=== PATIENT | female | born 2000 | race Caucasian/White ===

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

== ENCOUNTER → 2022-07-20 | Outpatient (REF) | payer OTHER ==
[~2022-07-20] MED LIST changes: +ACET500P3 PO; +IBUP80TA PO
[2022-07-20 20:06] LABS: GC DNA AMPLIFICATION NEGATIVE (NEGATIVE)
== END ==
LOC: M LAB REF 17:22
PROVIDERS: ATTEND Physician Assistant
DX: Z00.00 Encounter for general adult medical examination without abnormal findings (principal)

== ENCOUNTER → 2022-08-26 | Outpatient (REF) | payer OTHER ==
[2022-08-26 19:17] LABS: GC DNA AMPLIFICATION NEGATIVE (NEGATIVE)
== END ==
LOC: M LAB REF 16:59
PROVIDERS: ATTEND Pediatrics
DX: A56.02 Chlamydial vulvovaginitis (principal)

== ENCOUNTER 2022-09-06 21:57 | Emergency (ER) | payer OTHER ==
[~2022-09-06] VITALS: Ht 170.2 cm; Wt 76.5 kg
[2022-09-06 21:58] VITALS: BP 127/68
[2022-09-08] MEDS ORDERED: PEPC1TAB5 PO (11:07)
== END 2022-09-07 02:14 | disposition left against medical advice (07) ==
LOC: M ED 21:57
DX: R10.9 Unspecified abdominal pain (principal); Z53.21 Procedure and treatment not carried out due to patient leaving prior to being seen by health care provider

== ENCOUNTER 2022-09-08 08:32 | Emergency (ER) | payer OTHER ==
[~2022-09-08] VITALS: Ht 170.2 cm; Wt 76.7 kg
[2022-09-08 09:30] LABS: BASO # 0.1 10^3/uL (0.0-0.2); BASO % 1.3 % (0.0-1.0); EOS # 0.1 10^3/uL (0.0-0.5); EOS % 2.4 % (0.0-3.0); HEMATOCRIT 38.3 % (36.0-47.0); HEMOGLOBIN 11.9 g/dl (12.0-15.5); LYMPH % 36.6 % (24.0-44.0); MEAN CORPUSCULAR HEMOGLOBIN 26.4 pg (27.0-33.0); MEAN CORPUSCULAR HGB CONC 31.1 g/dl (32.0-36.5); MEAN CORPUSCULAR VOLUME 84.9 fl (80.0-96.0); MONO # 0.3 10^3/uL (0.0-0.8); NEUTROPHILS # 2.9 10^3/uL (1.5-8.5); NEUTROPHILS % 53.5 % (36.0-66.0); PLATELET COUNT, AUTOMATED 106 10^3/uL (150-450); RED BLOOD COUNT 4.51 10^6/uL (4.00-5.40); WHITE BLOOD COUNT 5.5 10^3/uL (4.0-10.0)
[2022-09-08 09:48] LABS: HCG, SERUM QUALITATIVE NEGATIVE (NEGATIVE)
[2022-09-08 09:48] LABS: LIPASE 30 U/L (12-53)
[2022-09-08 09:50] LABS: ALBUMIN 3.9 G/DL (3.2-5.2); ALKALINE PHOSPHATASE 60 U/L (46-116); ALT/SGPT < 9 U/L (7.0-40); AST/SGOT 13 U/L (<34); BILIRUBIN,DIRECT 0.2 MG/DL (<0.4); BILIRUBIN,TOTAL 0.4 MG/DL (0.3-1.2); BLOOD UREA NITROGEN 6 MG/DL (9-23); CALCIUM LEVEL 8.8 MG/DL (8.5-10.1); CARBON DIOXIDE LEVEL 28 MMOL/L (20-31); CHLORIDE LEVEL 108 MMOL/L (98-107); CREATININE FOR GFR 0.71 MG/DL (0.55-1.30); GLUCOSE, FASTING 89 MG/DL (60-100); POTASSIUM SERUM 3.7 MMOL/L (3.5-5.1); SODIUM LEVEL 140 MMOL/L (136-145); TOTAL PROTEIN 6.7 G/DL (5.7-8.2)
[2022-09-08] MEDS ORDERED: GI COCKTAIL 50ML BTL(HYOSCYAMINE/MAALOX/LIDOCAINE VISCOUS)(1:3:1) PO ONE (10:10)
[2022-09-08] MEDS ORDERED: PEPC1TAB5 PO (11:07)
[2022-09-08 11:15] VITALS: BP 129/82
== END 2022-09-08 11:20 | disposition home or self-care (01) ==
LOC: M ED 08:32
DX: K29.00 Acute gastritis without bleeding (principal)

== ENCOUNTER 2023-05-27 23:06 | Emergency (ER) | payer OTHER ==
[~2023-05-27] VITALS: Ht 170.2 cm; Wt 75.3 kg
[~2023-05-27 23:06] MED LIST changes: +PEPC1TAB5 PO
[2023-05-28 01:11] LABS: URINE PREG TEST NEGATIVE (NEGATIVE)
[2023-05-28 02:19] LABS: CHLAMYDIA DNA AMPLIFICATION NEGATIVE (NEGATIVE); GC DNA AMPLIFICATION NEGATIVE (NEGATIVE)
[2023-05-28] MEDS ORDERED: AMOXICILLIN 500 MG CAP PO ONE (04:00)
[2023-05-28] MEDS ORDERED: METR0.7526 TOP (04:02)
[2023-05-28] MEDS ORDERED: AMOX500C PO (04:02)
[2023-05-28 04:14] VITALS: BP 125/73; TEMP 97.5; O2SAT 100
== END 2023-05-28 04:22 | disposition home or self-care (01) ==
LOC: M ED 23:06
DX: N76.0 Acute vaginitis (principal); J02.0 Streptococcal pharyngitis; N39.0 Urinary tract infection, site not specified; Z79.2 Long term (current) use of antibiotics; Z79.899 Other long term (current) drug therapy

== ENCOUNTER → 2023-08-08 | Outpatient (CLI) | payer OTHER ==
[~2023-08-08] MED LIST changes: +METR0.7526 TOP
[2023-08-08 14:58] LABS: GC DNA AMPLIFICATION NEGATIVE (NEGATIVE)
[2023-08-08 16:20] LABS: HIV 1&2 SCREEN NEGATIVE (NEGATIVE)
[2023-08-08 16:29] LABS: HEPATITIS C VIRUS ABY INDEX < 0.02 INDEX (<0.8)
== END ==
LOC: M PLALAB 12:01
PROVIDERS: ATTEND Advanced Practice Midwife
DX: Z11.3 Encounter for screening for infections with a predominantly sexual mode of transmission (principal)

== ENCOUNTER 2025-02-21 05:14 | Emergency (ER) | payer OTHER ==
[~2025-02-21] VITALS: Ht 170.2 cm; Wt 75.7 kg
[~2025-02-21 05:14] MED LIST changes: +DOXY100T PO; +EQ A PO; -[UNRECOGNIZED DRUG - CODE] PO
[2025-02-21 06:25] LABS: BASO # 0.1 10^3/uL (0.0-0.2); BASO % 0.3 % (0.0-1.0); EOS # 0.0 10^3/uL (0.0-0.5); EOS % 0.0 % (0.0-3.0); LYMPH # 0.6 10^3/uL (1.5-5.0); LYMPH % 3.3 % (24.0-44.0); MONO # 0.9 10^3/uL (0.0-0.8); MONO % 4.9 % (2.0-8.0); NEUTROPHILS # 17.1 10^3/uL (1.5-8.5); NEUTROPHILS % 91.1 % (36.0-66.0); PLATELET COUNT, AUTOMATED 250 10^3/uL (150-450)
[2025-02-21 06:36] LABS: INR 1.06
[2025-02-21] MEDS: MORPHINE 4 MG/ML 1 ML VIAL IV PRN (06:36)
[2025-02-21] MEDS: ONDANSETRON 4MG 2ML VIAL IV ONE (06:37)
[2025-02-21 06:45] LABS: ALT/SGPT 14 U/L (7.0-40); AST/SGOT 31 U/L (<34); CALCIUM LEVEL 9.7 MG/DL (8.5-10.1); CARBON DIOXIDE LEVEL 23 MMOL/L (20-31); CHLORIDE LEVEL 106 MMOL/L (98-107); CREATININE FOR GFR 0.95 MG/DL (0.55-1.30); GLOMERULAR FILTRATION RATE 86.9 (>60); POTASSIUM SERUM 3.6 MMOL/L (3.5-5.1); SODIUM LEVEL 142 MMOL/L (136-145)
[2025-02-21 06:47] LABS: ETHYL ALCOHOL (ETHANOL) 0.004 % (0.000-0.010)
[2025-02-21] MEDS ORDERED: ISOVUE-370 76% 100 ML VIAL As Ordered ONE (06:47)
[2025-02-21 06:48] LABS: HCG, SERUM QUALITATIVE NEGATIVE (NEGATIVE)
[2025-02-21] MEDS: NS (Normal Saline) 0.9% 1,000 ML IV ONE (07:25)
[2025-02-21 09:42] LABS: APPEARANCE, URINE CLEAR (CLEAR); BACTERIA, URINE AUTO NEGATIVE (NEGATIVE); BILIRUBIN, URINE AUTO NEGATIVE (NEGATIVE); BLOOD, URINE BLOOD 1+ (NEGATIVE); GLUCOSE, URINE (UA) AUTO NEGATIVE (NEGATIVE); KETONE, URINE AUTO TRACE mg/dL (NEGATIVE); LEUKOCYTE ESTERASE, URINE AUTO NEGATIVE (NEGATIVE); MUCUS, URINE SMALL (NEGATIVE); NITRITE, URINE AUTO NEGATIVE (NEGATIVE); PROTEIN, URINE AUTO NEGATIVE (NEGATIVE); RBC, URINE AUTO 14 /HPF (0-3); SQUAMOUS EPITHELIAL CELL UR AU 4 /HPF (0-6); UROBILINOGEN, URINE AUTO 0.2 mg/dL (0.0-2.0); WBC, URINE AUTO 13 /HPF (0-3)
[2025-02-21 09:56] LABS: AMPHETAMINES LEVEL URINE NEGATIVE (NEGATIVE); BARBITURATES URINE NEGATIVE (NEGATIVE); BENZODIAZEPINES URINE NEGATIVE (NEGATIVE); CANNABINOIDS URINE NEGATIVE (NEGATIVE); COCAINE METABOLITE URINE NEGATIVE (NEGATIVE); METHADONE URINE NEGATIVE (NEGATIVE); PHENCYCLIDINE URINE NEGATIVE (NEGATIVE); SPECIFIC GRAVITY URINE AUTO >1.060 (1.002-1.035)
[2025-02-21 09:58] LABS: OPIATES URINE POSITIVE (NEGATIVE)
[2025-02-21 10:21] VITALS: TEMP 99.4
[2025-02-21 10:30] VITALS: BP 112/61; O2SAT 99
== END 2025-02-21 11:30 | disposition home or self-care (01) ==
LOC: M ED 05:14
DX: S00.83XA Contusion of other part of head, initial encounter (principal); S30.0XXA Contusion of lower back and pelvis, initial encounter; S60.221A Contusion of right hand, initial encounter; S60.222A Contusion of left hand, initial encounter; M50.222 Other cervical disc displacement at C5-C6 level; Y04.0XXA Assault by unarmed brawl or fight, initial encounter; Y04.1XXA Assault by human bite, initial encounter; J45.909 Unspecified asthma, uncomplicated; K59.00 Constipation, unspecified; Z79.899 Other long term (current) drug therapy; Z87.42 Personal history of other diseases of the female genital tract; Y99.9 Unspecified external cause status; Y92.009 Unspecified place in unspecified non-institutional (private) residence as the place of occurrence of the external cause; Y93.89 Activity, other specified
CPT/HCPCS: 70450; 70486; 71260; 72125; 72128; 72131; 73110; 73130; 74177; 80047; 80048; 80076; 80307; 81001; 82077; 82150; 83605; 83690; 84703; 85025; 85610; 85730; 93041; 94760; 96374; 96375; 99285; J2405; Q9967

== ENCOUNTER → 2025-03-21 | Outpatient (CLI) | payer MEDICAID | LOC: M OUTALCOH 09:44 | PROVIDERS: ATTEND Psychiatry & Neurology Psychiatry | DX: Z03.89 Encounter for observation for other suspected diseases and conditions ruled out (principal) ==

== ENCOUNTER → 2025-05-29 | Outpatient (REF) | payer MEDICAID ==
[2025-05-29 20:42] LABS: Trichomonas vaginalis (AMP) NOT DETECTED (NEGATIVE)
[2025-05-29 21:06] LABS: GC DNA AMPLIFICATION NEGATIVE (NEGATIVE)
== END ==
LOC: M LAB REF 16:31
DX: R10.20 Pelvic and perineal pain unspecified side (principal); R30.0 Dysuria

== ENCOUNTER 2025-06-05 20:52 | Emergency (ER) | payer MEDICAID, OTHER ==
[~2025-06-05] VITALS: Ht 170.2 cm; Wt 73.9 kg
[2025-06-05 21:30] LABS: APPEARANCE, URINE HAZY (CLEAR); BACTERIA, URINE AUTO 1+ (NEGATIVE); BILIRUBIN, URINE AUTO NEGATIVE (NEGATIVE); BLOOD, URINE BLOOD NEGATIVE (NEGATIVE); GLUCOSE, URINE (UA) AUTO NEGATIVE (NEGATIVE); KETONE, URINE AUTO NEGATIVE (NEGATIVE); LEUKOCYTE ESTERASE, URINE AUTO NEGATIVE (NEGATIVE); NITRITE, URINE AUTO NEGATIVE (NEGATIVE); PROTEIN, URINE AUTO NEGATIVE (NEGATIVE); RBC, URINE AUTO 1 /HPF (0-3); SPECIFIC GRAVITY URINE AUTO 1.011 (1.002-1.035); SQUAMOUS EPITHELIAL CELL UR AU 9 /HPF (0-6); UROBILINOGEN, URINE AUTO 0.2 mg/dL (0.0-2.0); WBC, URINE AUTO 3 /HPF (0-3)
[2025-06-06] MEDS: KETOROLAC 60 MG/2 ML VIAL IM ONE (00:27)
[2025-06-06 00:59] LABS: Trichomonas vaginalis (AMP) NOT DETECTED (NEGATIVE)
[2025-06-06 01:22] LABS: GC DNA AMPLIFICATION NEGATIVE (NEGATIVE)
[2025-06-06] MEDS ORDERED: AMOX875T2 PO (01:29)
[2025-06-06] MEDS ORDERED: NAPR-1405 PO (01:31)
[2025-06-06] MEDS: AUGMENTIN 875 MG TAB PO ONE (01:48)
[2025-06-06 01:58] VITALS: BP 113/60; TEMP 95.7; O2SAT 97
== END 2025-06-06 01:50 | disposition home or self-care (01) ==
LOC: M ED 20:52
DX: K04.7 Periapical abscess without sinus (principal); Z11.3 Encounter for screening for infections with a predominantly sexual mode of transmission; Z79.2 Long term (current) use of antibiotics; Z79.899 Other long term (current) drug therapy; Z79.1 Long term (current) use of non-steroidal anti-inflammatories (NSAID)
CPT/HCPCS: 81001; 87661; 87810; 87850; 99283; J1885